=== PATIENT | male | born 1960 | race African-American/Black ===

== ENCOUNTER 2022-05-29 04:36 | Emergency (ER) | payer MEDICARE, MEDICAID ==
[~2022-05-29] VITALS: Ht 182.9 cm; Wt 82.0 kg
[2022-05-29] MEDS ORDERED: FAMOTIDINE 20MG/2ML VIAL IV ONE (05:00)
[2022-05-29] MEDS ORDERED: EPINEPHRINE 1:1000 1 MG/ML AMP SUBCUT ONE (05:00)
[2022-05-29] MEDS ORDERED: METHYLPREDNISOLONE SOD SUCC 125 MG/2 ML VIAL IV ONE (05:00)
[2022-05-29 05:42] LABS: BASOPHILS % 0.8 % (0.0-2.0); EOSINOPHILS % 0.9 % (0.0-5.0); HEMATOCRIT. 39.6 % (42.0-52.0); HEMOGLOBIN. 13.2 g/dL (14.0-18.0); LYMPHOCYTES % 17.6 % (20.0-50.0); MEAN CORPUSCULAR HEMOGLOBIN 30.3 pg (28.0-32.0); MEAN CORPUSCULAR VOLUME 90.7 fL (80.0-94.0); MEAN PLATELET VOLUME 7.1 fl (7.4-10.4); MONOCYTES % 9.4 % (2.0-8.0); NEUTROPHILS % 71.3 % (40.0-76.0); PLATELET 271 x1000/uL (130-400); RED BLOOD CELL COUNT 4.37 mill/uL (4.7-6.1); RED CELL DISTRIBUTION WIDTH 16.6 % (11.6-14.6)
[2022-05-29 05:50] LABS: CHLORIDE 107 mEq/L (98-107)
[2022-05-29] MEDS ORDERED: AMLO10TA80 MT (08:46)
[2022-05-29 08:56] VITALS: BP 203/99
== END 2022-05-29 08:59 | disposition left against medical advice (07) ==
LOC: ER 04:52
DX: T78.3XXA Angioneurotic edema, initial encounter (principal); I10 Essential (primary) hypertension; Z88.8 Allergy status to other drugs, medicaments and biological substances
CPT/HCPCS: 36415; 80053; 85025; 96372; 96374; 96375; 99284; J2930; J3490

== ENCOUNTER 2025-02-10 00:01 | Inpatient (IN) | payer MEDICARE, MEDICAID ==
[~2025-02-10] VITALS: Ht 180.3 cm; Wt 85.3 kg
[~2025-02-10 00:01] MED LIST: AMLO10TA80 MT
[2025-02-10 00:15] VITALS: O2SAT 98
[2025-02-10 00:29] LABS: BASOPHILS % 0.3 % (0.0-2.0); EOSINOPHILS % 2.0 % (0.0-5.0); HEMATOCRIT. 35.6 % (42.0-52.0); HEMOGLOBIN. 11.8 g/dL (14.0-18.0); LYMPHOCYTES % 20.4 % (20.0-50.0); MEAN PLATELET VOLUME 7.0 fl (7.4-10.4); MONOCYTES % 7.2 % (2.0-8.0); NEUTROPHILS % 70.1 % (40.0-76.0); PLATELET 283 x1000/uL (130-400); RED BLOOD CELL COUNT 3.93 mill/uL (4.7-6.1); RED CELL DISTRIBUTION WIDTH 16.0 % (11.6-14.6)
[2025-02-10 00:41] LABS: INR 1.0
[2025-02-10 00:42] LABS: CREATININE 0.9 mg/dL (0.6-1.3)
[2025-02-10 00:43] LABS: ETHANOL BLOOD < 10 mg/dL (<10); UREA NITROGEN BLOOD 11 mg/dL (9-23)
[2025-02-10 00:44] LABS: ASPARTATE AMINOTRANSFERASE 23 IU/L (<34); TROPONIN I HIGH SENSITIVITY 13 ng/L (3.0-53)
[2025-02-10 00:45] LABS: BILIRUBIN DIRECT < 0.1 mg/dL (<=3.0); BILIRUBIN TOTAL 0.3 mg/dL (0.1-1.0); PROTEIN TOTAL 7.8 g/dL (6.0-8.3)
[2025-02-10 02:33] LABS: *AMPHETAMINES SCREEN URINE NEGATIVE (NEGATIVE); *BARBITURATES SCREEN URINE NEGATIVE (NEGATIVE); *BENZODIAZEPINES SCREEN URINE NEGATIVE (NEGATIVE); *COCAINE SCREEN URINE NEGATIVE (NEGATIVE); CANNABINOID URINE SCREEN PRESUMPTIVE POSITIVE (NEGATIVE); ECSTASY MDMA SCREEN URINE NEGATIVE (NEGATIVE); METHADONE URINE SCREEN NEGATIVE (NEGATIVE); OPIATES URINE SCREEN NEGATIVE (NEGATIVE); PHENCYCLIDINE URINE SCREEN NEGATIVE (NEGATIVE)
[2025-02-10] MEDS: HYDRALAZINE 20MG/ML VIAL IV ONE (03:05)
[2025-02-10] MEDS ORDERED: HYDRALAZINE HCL 25MG TABLET PO SCH (03:45)
[2025-02-10] MEDS ORDERED: IPRATROPIUM/ALBUTEROL 0.5-3(2.5)MG/3ML NEB HHN PRN (03:45)
[2025-02-10] MEDS ORDERED: DEXTROSE 50% WATER 50ML SYRINGE IV PRN (03:45)
[2025-02-10] MEDS ORDERED: ACETAMINOPHEN 325MG TABLET PO PRN ×2 (03:45)
[2025-02-10] MEDS ORDERED: ONDANSETRON HCL 4MG/2ML INJ IV PRN (03:45)
[2025-02-10 04:10] LABS: PHOSPHORUS 3.2 mg/dL (2.5-4.9)
[2025-02-10 04:14] LABS: FOLIC ACID (FOLATE) SERUM 11.94 ng/mL (>5.38)
[2025-02-10 04:15] LABS: VITAMIN B12 SERUM 745 pg/mL (211-911)
[2025-02-10 04:38] LABS: C REACTIVE PROTEIN HIGH SENS 20.40 mg/l (<1.00)
[2025-02-10 05:29] VITALS: BP 166/97; PULSE 71; RESP 18; TEMP 36.418
[2025-02-10] MEDS ORDERED: HYDRALAZINE 20MG/ML VIAL IV PRN (05:30)
[2025-02-10] MEDS ORDERED: GABA-1180 PO (05:36)
[2025-02-10] MEDS ORDERED: TRIA15OI8 TP (05:36)
[2025-02-10] MEDS ORDERED: CYCL10TA21 PO (05:36)
[2025-02-10] MEDS: HYDRALAZINE HCL 50MG TABLET PO SCH (06:10)
[2025-02-10] MEDS: AMLODIPINE 10MG TABLET PO NR (06:11)
[2025-02-10] MEDS: BLOOD SUGAR DIAGNOSTIC STRIP TEST SCH (06:11)
[2025-02-10 08:00] VITALS: BP 123/66; PULSE 75; RESP 18; TEMP 36.2; O2SAT 96
[2025-02-10] MEDS: ENOXAPARIN 40MG/0.4ML SYR SUBCUT SCH (08:46)
[2025-02-10] MEDS: AMLODIPINE 10MG TABLET PO SCH (08:46)
[2025-02-10] MEDS: CYCLOBENZAPRINE 10MG TABLET PO SCH (08:46)
[2025-02-10] MEDS: FAMOTIDINE 20MG/2ML VIAL IV SCH (08:46)
[2025-02-10] MEDS: GABAPENTIN 300MG CAPSULE PO SCH (08:46)
[2025-02-10] MEDS: TRIAMCINOLONE ACETONIDE 0.5% CREAM 15GM TOP SCH (08:47)
[2025-02-10] MEDS ORDERED: AMLODIPINE 10MG TABLET PO SCH (09:00)
[2025-02-10] MEDS: THIAMINE HCL 100MG TABLET PO SCH (09:43)
[2025-02-10] MEDS: FOLIC ACID 1MG TABLET PO SCH (09:44)
[2025-02-10] MEDS: MULTIVITAMINS,THER W-MINERALS TABLET PO SCH (09:44)
== END 2025-02-10 10:40 | disposition left against medical advice (07) | DRG 305 ==
LOC: ER 00:01 → 5WST 03:10 → EDBEDREQ 03:17 → EDBEDREQTM 03:17 → ENRESERV 03:20
PROVIDERS: ADMIT Hospitalist; ATTEND Hospitalist
DX: I16.1 Hypertensive emergency (principal); I10 Essential (primary) hypertension; F10.20 Alcohol dependence, uncomplicated; D50.9 Iron deficiency anemia, unspecified; Z53.29 Procedure and treatment not carried out because of patient's decision for other reasons; L30.9 Dermatitis, unspecified; G62.9 Polyneuropathy, unspecified; H53.8 Other visual disturbances; Z91.148 Patient's other noncompliance with medication regimen for other reason; Z88.8 Allergy status to other drugs, medicaments and biological substances
CPT/HCPCS: 36415; 71045; 80048; 80076; 80305; 80320; 82607; 82728; 82746; 82962; 83036; 83540; 83550; 83735; 83880; 84100; 84484; 85025; 85651; 86141; 93005; 93880; 99285; J0360; J1308; J1650; G0480

== ENCOUNTER 2025-02-15 23:43 | Emergency (ER) | payer MEDICARE, MEDICAID ==
[~2025-02-15] VITALS: Ht 175.3 cm; Wt 95.0 kg
[~2025-02-15 23:43] MED LIST changes: +CYCL10TA21 PO; +GABA-1180 PO; +TRIA15OI8 TP
[2025-02-15 23:49] VITALS: O2SAT 98
[2025-02-16 01:20] LABS: BASOPHILS % 1.5 % (0.0-2.0); EOSINOPHILS % 1.5 % (0.0-5.0); HEMATOCRIT. 37.1 % (42.0-52.0); HEMOGLOBIN. 12.0 g/dL (14.0-18.0); LYMPHOCYTES % 19.5 % (20.0-50.0); MEAN PLATELET VOLUME 7.1 fl (7.4-10.4); MONOCYTES % 8.2 % (2.0-8.0); NEUTROPHILS % 69.3 % (40.0-76.0); PLATELET 336 x1000/uL (130-400); RED BLOOD CELL COUNT 4.08 mill/uL (4.7-6.1); RED CELL DISTRIBUTION WIDTH 15.6 % (11.6-14.6)
[2025-02-16 01:21] LABS: CLARITY URINE CLEAR (CLEAR); COLOR URINE YELLOW (YELLOW); GLUCOSE URINE NEGATIVE (NEGATIVE); KETONES URINE NEGATIVE (NEGATIVE); LEUKOCYTE ESTERASE URINE NEGATIVE (NEGATIVE); NITRITE URINE NEGATIVE (NEGATIVE); OCCULT BLOOD URINE TRACE (NEGATIVE); PH URINE 6.5 (4.5-8.0); PROTEIN URINE NEGATIVE (NEGATIVE); SPECIFIC GRAVITY URINE 1.007 (1.005-1.030); UROBILINOGEN URINE 1.0 E.U./dL (0.2-1.0)
[2025-02-16 01:31] LABS: INR 1.0
[2025-02-16 01:35] LABS: CREATININE 1.0 mg/dL (0.6-1.3)
[2025-02-16 01:36] LABS: ETHANOL BLOOD < 10 mg/dL (<10); UREA NITROGEN BLOOD 17 mg/dL (9-23)
[2025-02-16 01:37] LABS: ASPARTATE AMINOTRANSFERASE 18 IU/L (<34)
[2025-02-16 01:38] LABS: BILIRUBIN DIRECT < 0.1 mg/dL (<=3.0); BILIRUBIN TOTAL 0.3 mg/dL (0.1-1.0); PROTEIN TOTAL 8.1 g/dL (6.0-8.3)
[2025-02-16 01:41] LABS: *AMPHETAMINES SCREEN URINE NEGATIVE (NEGATIVE)
[2025-02-16 01:42] LABS: *BARBITURATES SCREEN URINE NEGATIVE (NEGATIVE); *BENZODIAZEPINES SCREEN URINE NEGATIVE (NEGATIVE); *COCAINE SCREEN URINE NEGATIVE (NEGATIVE); CANNABINOID URINE SCREEN PRESUMPTIVE POSITIVE (NEGATIVE); ECSTASY MDMA SCREEN URINE NEGATIVE (NEGATIVE); METHADONE URINE SCREEN NEGATIVE (NEGATIVE); OPIATES URINE SCREEN NEGATIVE (NEGATIVE); PHENCYCLIDINE URINE SCREEN NEGATIVE (NEGATIVE)
[2025-02-16 01:49] LABS: BACTERIA URINE NONE SEEN; RBC URINE NONE SEEN /hpf (0-2); SQUAMOUS EPITHELIAL CELL URINE NONE SEEN /lpf (RARE/1+); WBC URINE NONE SEEN /hpf (0-2)
[2025-02-16 01:50] LABS: YEAST URINE NONE SEEN
[2025-02-16] MEDS ORDERED: IBUP-2028 MT (02:02)
[2025-02-16 02:12] LABS: ERYTHROCYTE SEDIMENTATION RATE 65 mm/hr (0-20)
[2025-02-16 02:24] VITALS: BP 159/76; PULSE 78; RESP 14; TEMP 36.7; O2SAT 99
== END 2025-02-16 02:27 | disposition home or self-care (01) ==
LOC: ER 23:43
DX: R68.84 Jaw pain (principal); D64.9 Anemia, unspecified; I10 Essential (primary) hypertension; Z88.8 Allergy status to other drugs, medicaments and biological substances; Z79.899 Other long term (current) drug therapy; Z86.73 Personal history of transient ischemic attack (TIA), and cerebral infarction without residual deficits
CPT/HCPCS: 36415; 80048; 80076; 80305; 80320; 81003; 83735; 85025; 85651; 99283; G0480